=== PATIENT | male | born 1980 | race Caucasian/White ===

== ENCOUNTER 2018-06-19 17:33 | Emergency (ER) | payer BC ==
[2018-06-19 17:42] VITALS: BP 153/95
[2018-06-19] MEDS ORDERED: Sodium Chloride 0.9% 10 ML Syringe FLUSH PRN (19:17)
[2018-06-19 19:54] LABS: HEMOGLOBIN A1C 5.8 % (4.50-6.20)
[2018-06-19] MEDS ORDERED: Diatrizoate Meglumine/Diatrizoate Sodium 37% 120 ML Bottle PO ONE (20:02)
[2018-06-19] MEDS ORDERED: Iopamidol 612 MG/ML 50 ML SDV IVPUSH ONE (20:02)
[2018-06-19] MEDS ORDERED: Iopamidol 612 MG/ML 100 ML Bottle IVPUSH ONE (20:02)
--- NOTE | 2018-06-19 21:03 | CT ---
CT abdomen and pelvis Technique: Multiple axial sections were obtained from above the dome of the diaphragm to the pubic symphysis. Intravenous and oral contrast was utilized. Delayed images were also obtained through the bladder. Comparison: No prior abdominal imaging is available. Findings: Small portion of the visualized lung bases are clear. Liver shows no focal parenchymal abnormality. Spleen appears within normal limits. Adrenal glands show no nodule. Pancreas is within normal limits. Gallbladder contains no calcified gallstones. Kidneys show symmetric contrast enhancement without hydronephrosis or mass. Aorta shows no aneurysm. No retroperitoneal adenopathy or mesenteric abnormalities are seen. No pelvic mass or adenopathy is seen. Appendix is seen which appears within normal limits. Delayed images shows contrast within the distal ureters and within the bladder. No bowel abnormality is appreciated. Bone window settings were reviewed which appear within normal limits for the patient's age. Impression: 1. Nothing acute is seen on CT study of the abdomen and pelvis. Diagnostic code #1
--- NOTE | 2018-06-19 21:54 | EDM.PDOC ---
ED HPI GENERAL MEDICAL PROBLEM - General Chief Complaint: Abdominal Pain Stated Complaint: POSS. APPENDICITIS- SENT BY CLINIC Time Seen by Provider: 06/19/18 19:40 Source of Information: Reports: Patient History Limitations: Reports: No Limitations - History of Present Illness INITIAL COMMENTS - FREE TEXT/NARRATIVE: 38-year-old male presents for evaluation and treatment of abdominal pain. Patient was seen in the walk-in clinic prior to arrival in the ER, sent over for possible appendicitis. Reports his temperature was 100.7 in the walk-in. Patient reports since around he has appreciated bloating and increased weight gain around his abdomen. He states that the abdominal pain is not constant describes as a cramping sensation throughout his entire abdomen. He reports associated symptoms of decreased appetite, early satiety, increased urinary frequency, night sweats and increased back pain. Patient has chronic back pain but feels it is worse than normal. He denies any dysuria, hematuria, nausea, vomiting, diarrhea or constipation. Primary care provide Dr. Joseph. Patient is reportedly scheduled for an EGD for chronic reflux on Friday. - Related Data Allergies Allergy/AdvReac Type Severity Reaction Status Date / Time amoxicillin Allergy Other Verified 06/19/18 17:43 cat dander Allergy Other Verified 06/19/18 17:43 Penicillins Allergy Other Verified 06/19/18 17:43 Home Meds: Home Meds Albuterol [Ventolin HFA] 1 inh INH ASDIRECTED PRN 06/19/18 [History] Budesonide/Formoterol [Symbicort 160-4.5 MCG] 1 inh INH ASDIRECTED 06/19/18 [ History] Montelukast [Singulair] 10 mg PO DAILY 06/19/18 [History] Past Medical History Musculoskeletal History: Reports: Back Pain, Chronic Social & Family History - Tobacco Use Smoking Status *Q: Current Some Day Smoker Years of Tobacco use: 15 Packs/Tins Daily: 0.1 - Caffeine Use Caffeine Use: Reports: Coffee - Recreational Drug Use Recreational Drug Use: No ED ROS GENERAL - Review of Systems Review Of Systems: See Below Constitutional: Reports: Night Sweats, Decreased Appetite. Denies: Fever, Chills, Weight Gain (feels that he has gained weight around his abdomen but has not seen significant weight change on the scale or appreciated significant change in his clothing) GI/Abdominal: Reports: Abdominal Pain (reprots abdominal cramping), Other ( reports bloating and early satity). Denies: Constipation, Diarrhea, Nausea, Vomiting : Reports: Frequency. Denies: Dysuria, Hematuria Musculoskeletal: Reports: Back Pain (chronic, worse than normal) ED EXAM, GI/ABD - Physical Exam Exam: See Below Exam Limited By: No Limitations General Appearance: Alert, WD/WN, No Apparent Distress, Anxious, Obese Throat/Mouth: Normal Inspection, Normal Voice, No Airway Compromise Respiratory/Chest: No Respiratory Distress, Lungs Clear, Normal Breath Sounds Cardiovascular: Normal Peripheral Pulses GI/Abdominal Exam: Normal Bowel Sounds, Soft, Non-Tender, No Distention, No Mass Neurological: Alert, Oriented, Normal Cognition Psychiatric: Normal Affect, Normal Mood Skin Exam: Warm, Dry, Normal Color Course - Vital Signs Last Recorded V/S: Last Vital Signs Temp 99.4 F 06/19/18 17:39 Pulse 84 06/19/18 17:39 Resp 18 06/19/18 17:39 BP 153/95 H 06/19/18 17:39 Pulse Ox 98 06/19/18 17:39 - Orders/Labs/Meds Labs: Laboratory Tests 06/19/18 06/19/18 06/19/18 Range/Units 19:20 19:25 19:25 WBC 8.64 (4.23-9.07) K/mm3 RBC 5.26 (4.63-6.08) M/mm3 Hgb 16.0 (13.7-17.5) gm/L Hct 46.4 (40.1-51.0) % MCV 88.2 (79.0-92.2) fl MCH 30.4 (25.7-32.2) pg MCHC 34.5 (32.2-35.5) g/dl RDW Std Deviation 43.4 (35.1-43.9) fL Plt Count 284 (163-337) K/mm3 MPV 10.7 (9.4-12.3) fl Neutrophils % (Manual) 73 H (40-60) % Band Neutrophils % 0 (0-10) % Lymphocytes % (Manual) 17 L (20-40) % Atypical Lymphs % 0 % Monocytes % (Manual) 4 (2-10) % Eosinophils % (Manual) 5 (0.8-7.0) % Basophils % (Manual) 1 (0.2-1.2) Platelet Estimate Adequate RBC Morph Comment Normal Sodium 139 (136-145) mEq/L Potassium 4.0 (3.5-5.1) mEq/L Chloride 103 (98-107) mEq/L Carbon Dioxide 25 (21-32) mEq/L Anion Gap 15.0 (5-15) BUN 14 (7-18) mg/dL Creatinine 0.9 (0.7-1.3) mg/dL Est Cr Clr Drug Dosing 99.44 mL/min Estimated GFR (MDRD) > 60 (>60) mL/min BUN/Creatinine Ratio 15.6 (14-18) Glucose 94 (74-106) mg/dL Hemoglobin A1c (4.50-6.20) % Calcium 9.8 (8.5-10.1) mg/dL Total Bilirubin 0.6 (0.2-1.0) mg/dL AST 27 (15-37) U/L ALT 47 (16-63) U/L Alkaline Phosphatase 121 H (46-116) U/L C-Reactive Protein 0.6 (<1.0) mg/dL Total Protein 8.7 H (6.4-8.2) g/dl Albumin 4.2 (3.4-5.0) g/dl Globulin 4.5 gm/dL Albumin/Globulin Ratio 0.9 L (1-2) Lipase 142 (73-393) U/L Urine Color Yellow (Yellow) Urine Appearance Clear (Clear) Urine pH 6.0 (5.0-8.0) Ur Specific [place] 1.025 (1.005-1.030) Urine Protein Negative (Negative) Urine Glucose (UA) Negative (Negative) Urine Ketones 2+ H (Negative) Urine Occult Blood Negative (Negative) Urine Nitrite Negative (Negative) Urine Bilirubin 1+ H (Negative) Urine Urobilinogen 0.2 (0.2-1.0) Ur Leukocyte Esterase Negative (Negative) Urine RBC 0-5 (0-5) /hpf Urine WBC 0-5 (0-5) /hpf Ur Epithelial Cells 0-5 (0-5) /hpf Urine Bacteria Few (FEW) /hpf Urine Mucus Moderate H (FEW) /hpf 06/19/18 Range/Units 19:25 WBC (4.23-9.07) K/mm3 RBC (4.63-6.08) M/mm3 Hgb (13.7-17.5) gm/L Hct (40.1-51.0) % MCV (79.0-92.2) fl MCH (25.7-32.2) pg MCHC (32.2-35.5) g/dl RDW Std Deviation (35.1-43.9) fL Plt Count (163-337) K/mm3 MPV (9.4-12.3) fl Neutrophils % (Manual) (40-60) % Band Neutrophils % (0-10) % Lymphocytes % (Manual) (20-40) % Atypical Lymphs % % Monocytes % (Manual) (2-10) % Eosinophils % (Manual) (0.8-7.0) % Basophils % (Manual) (0.2-1.2) Platelet Estimate RBC Morph Comment Sodium (136-145) mEq/L Potassium (3.5-5.1) mEq/L Chloride (98-107) mEq/L Carbon Dioxide (21-32) mEq/L Anion Gap (5-15) BUN (7-18) mg/dL Creatinine (0.7-1.3) mg/dL Est Cr Clr Drug Dosing mL/min Estimated GFR (MDRD) (>60) mL/min BUN/Creatinine Ratio (14-18) Glucose (74-106) mg/dL Hemoglobin A1c 5.80 (4.50-6.20) % Calcium (8.5-10.1) mg/dL Total Bilirubin (0.2-1.0) mg/dL AST (15-37) U/L ALT (16-63) U/L Alkaline Phosphatase (46-116) U/L C-Reactive Protein (<1.0) mg/dL Total Protein (6.4-8.2) g/dl Albumin (3.4-5.0) g/dl Globulin gm/dL Albumin/Globulin Ratio (1-2) Lipase (73-393) U/L Urine Color (Yellow) Urine Appearance (Clear) Urine pH (5.0-8.0) Ur Specific [place] (1.005-1.030) Urine Protein (Negative) Urine Glucose (UA) (Negative) Urine Ketones (Negative) Urine Occult Blood (Negative) Urine Nitrite (Negative) Urine Bilirubin (Negative) Urine Urobilinogen (0.2-1.0) Ur Leukocyte Esterase (Negative) Urine RBC (0-5) /hpf Urine WBC (0-5) /hpf Ur Epithelial Cells (0-5) /hpf Urine Bacteria (FEW) /hpf Urine Mucus (FEW) /hpf Meds: Medications Discontinued Medications Generic Name Dose Route Start Last Admin Trade Name Freq PRN Reason Stop Dose Admin Diatrizoate Meglum/Diatrizoate Sod 120 ml 06/19/18 20:02 06/19/18 20:47 Gastrografin 37% PO 06/19/18 20:03 120 ml ONETIME ONE Administration Iopamidol 25 ml 06/19/18 20:02 06/19/18 20:47 Isovue-300 (61%) IVPUSH 06/19/18 20:03 25 ml ONETIME ONE Administration Iopamidol 100 ml 06/19/18 20:02 06/19/18 20:47 Isovue-300 (61%) IVPUSH 06/19/18 20:03 100 ml ONETIME ONE Administration Sodium Chloride 10 ml 06/19/18 19:17 06/19/18 19:39 Saline Flush FLUSH 10 ml ASDIRECTED PRN Administration Keep Vein Open - Radiology Interpretation Free Text/Narrative:: CT abdomen and pelvis Technique: Multiple axial sections were obtained from above the dome of the diaphragm to the pubic symphysis. Intravenous and oral contrast was utilized. Delayed images were also obtained through the bladder. Comparison: No prior abdominal imaging is available. Findings: Small portion of the visualized lung bases are clear. Liver shows no focal parenchymal abnormality. Spleen appears within normal limits. Adrenal glands show no nodule. Pancreas is within normal limits. Gallbladder contains no calcified gallstones. Kidneys show symmetric contrast enhancement without hydronephrosis or mass. Aorta shows no aneurysm. No retroperitoneal adenopathy or mesenteric abnormalities are seen. No pelvic mass or adenopathy is seen. Appendix is seen which appears within normal limits. Delayed images shows contrast within the distal ureters and within the bladder. No bowel abnormality is appreciated. Bone window settings were reviewed which appear within normal limits for the patient's age. Impression: 1. Nothing acute is seen on CT study of the abdomen and pelvis. - Re-Assessments/Exams Free Text/Narrative Re-Assessment/Exam: 06/19/18 21:52 Patient has declined pain or nausea medication since being seen in the ED. Reviewed the labs and imaging with the patient. He was reassured. I do feel that an EGD on Friday is a good next course of action. His follow-up with his primary care provider on Friday. Will discharge home at this time. Discharge instructions as documented. Departure - Departure Time of Disposition: 21:53 Disposition: Home, Self-Care 01 Condition: Fair Clinical Impression: Abdominal pain - Discharge Information *PRESCRIPTION DRUG MONITORING PROGRAM REVIEWED*: No *COPY OF PRESCRIPTION DRUG MONITORING REPORT IN PATIENT TONG: No Instructions: Abdominal Pain, Adult Referrals: Vasiliy Joseph Jr, MD [Primary Care Provider] - Forms: ED Department Discharge Additional Instructions: you may take [id number] Tylenol or Motrin as needed for discomfort. Recommend small bites of food with frequent sips of fluids while eating. EGD Friday as planned. Follow-up with your primary care provider Friday as planned for results or your EGD and follow-up of your symptoms. Please return to the ER if your symptoms change or worsen.
== END 2018-06-19 22:00 | disposition home or self-care (01) ==
LOC: JD.ED 17:33
DX: R10.84 Generalized abdominal pain (principal); F17.210 Nicotine dependence, cigarettes, uncomplicated; Z88.1 Allergy status to other antibiotic agents; Z88.0 Allergy status to penicillin; Z79.899 Other long term (current) drug therapy
CPT/HCPCS: 36415; 74177; 80053; 81001; 83036; 83690; 85007; 85027; 86140; 99284; Q9963; Q9967